=== PATIENT | female | born 1985 | race Caucasian/White ===

== ENCOUNTER → 2020-08-10 | Outpatient (CLI) | payer BC, OTHER ==
[2020-08-10 08:18] LABS: HEMOGLOBIN 12.6 gm/dl (12.3-15.3); RED BLOOD COUNT 4.07 M/UL (4.00-5.10); WHITE BLOOD COUNT 6.4 K/UL (4.5-11.0)
[2020-08-10 08:35] LABS: BUN/CREATININE RATIO 15 (0-10)
== END ==
LOC: LAB 07:24
PROVIDERS: Surgery
DX: R73.03 Prediabetes (principal)
CPT/HCPCS: 36415; 80053; 80061; 83036; 84439; 84443; 85027